=== PATIENT | male | born 1950 | race Caucasian/White ===

== ENCOUNTER 2023-04-30 09:23 | Outpatient (CLI) | payer OTHER ==
[2023-04-30 10:44] LABS: Hematocrit 46.9 % (38.8-50.0); Hemoglobin 15.5 g/dL (13.5-17.5)
[2023-04-30 10:54] LABS: Anion Gap 13 mmol/L (10-20); BUN (Urea Nitrogen) 11 mg/dL (8.4-25.7); Calc. Creatinine Clearance 0 mL/min (70-130); Calcium 9.5 mg/dL (7.8-10.44); Carbon Dioxide 28 mmol/L (23-31); Chloride 104 mmol/L (98-107); Estimated GFR 68; Glucose 119 mg/dL (83-110); Potassium 4.4 mmol/L (3.5-5.1); Sodium 141 mmol/L (136-145)
== END 2023-04-30 09:24 | disposition home or self-care (01) ==
LOC: CSHLAB 09:23
PROVIDERS: ATTEND Otolaryngology Otolaryngic Allergy
DX: Z01.818 Encounter for other preprocedural examination (principal)
CPT/HCPCS: 80048; 85014; 85018; 93005; 93010

== ENCOUNTER 2023-05-07 07:53 | Day surgery (SDC) | payer MEDICARE ==
[2023-04-30 09:55] VITALS: BMI 34.4
[2023-05-07] MEDS ORDERED: Dexamethasone 20 MG/5 ML VIAL ONE (10:14)
[2023-05-07] MEDS ORDERED: Midazolam HCl 2 mg/2 ml Vial ONE (10:14)
[2023-05-07] MEDS ORDERED: Rocuronium Bromide 10 MG/ML (10ML VIAL) ONE (10:14)
[2023-05-07] MEDS ORDERED: Ondansetron PF 4 MG/2 ML Vial ONE (10:14)
[2023-05-07] MEDS ORDERED: fentaNYL 50 mcg/mL 1 mL Vial ONE (10:14)
[2023-05-07] MEDS ORDERED: Lidocaine 1% PF 5 ML VIAL ONE (10:14)
[2023-05-07] MEDS ORDERED: PROPOFOL 20 ML ONE (10:14)
[2023-05-07] MEDS ORDERED: EPINEPHrine 1 MG/ML VIAL ONE (10:40)
[2023-05-07] MEDS ORDERED: Lidocaine 1% w/Epinephrine 1:100K 20 ML VIAL ONE (11:02)
[2023-05-07] MEDS ORDERED: PHENYLEPHRINE-NS 100 MCG/ML 10 ML SYRINGE ONE (11:03)
[2023-05-07] MEDS ORDERED: Glycopyrrolate 0.2 MG/ML 5 ML SYRINGE ONE (11:15)
[2023-05-07] MEDS ORDERED: ePHEDrine Sulfate 50 MG/10 ML VIAL ONE (11:18)
== END 2023-05-07 12:40 | disposition home or self-care (01) ==
LOC: CSHSDC 07:53
PROVIDERS: ATTEND Otolaryngology Otolaryngic Allergy
PROC: 0CBM8ZX Excision of Pharynx, Via Natural or Artificial Opening Endoscopic, Diagnostic (ICD-10-PCS; principal; 2023-05-07)
DX: K13.21 Leukoplakia of oral mucosa, including tongue (principal); E03.9 Hypothyroidism, unspecified; Z79.899 Other long term (current) drug therapy; Z79.890 Hormone replacement therapy
CPT/HCPCS: 31536; J0171; J3010; 88305; J1100; J2250; J2405; J2704